=== PATIENT | female | born 1935 | race Caucasian/White ===

== ENCOUNTER 2020-06-21 07:34 | Outpatient (REF) | payer MEDICARE, OTHER, SELFPAY ==
[2020-06-21 11:41] LABS: B Type Natriuretic Peptide 85 pg/mL (<100)
[2020-06-21 11:45] LABS: Alanine Aminotransferase 13 U/L (0-31); Albumin Level 3.9 g/dL (3.5-5.0); Alkaline Phosphatase 87 U/L (39-117); Anion Gap 15 (12-20); Aspartate Amino Transferase 16 U/L (5-31); Bilirubin Total 0.3 mg/dL (0.0-1.0); Blood Urea Nitrogen 18 mg/dL (9-16); Calcium 8.7 mg/dL (8.4-10.2); Carbon Dioxide 25 mmol/L (22-29); Chloride 104 mmol/L (96-108); Estimated Glomerular Filt Rate > 60; Glucose Fasting 96 mg/dL (60-99); Potassium 4.3 mmol/l (3.3-5.1); Sodium 140 mmol/L (135-145)
== END 2020-06-21 07:35 | disposition home or self-care (01) ==
LOC: HO.HMGCLDS 07:34
PROVIDERS: PCP Internal Medicine; Visit Provider Internal Medicine
DX: E03.9 Hypothyroidism, unspecified (principal); I10 Essential (primary) hypertension; G25.81 Restless legs syndrome; R60.9 Edema, unspecified
CPT/HCPCS: 80053; 83880

== ENCOUNTER 2020-09-27 08:49 | Outpatient (REF) | payer MEDICARE, OTHER, SELFPAY ==
[2020-09-27 11:24] LABS: Hematocrit 40.9 % (37-47); Hemoglobin 13.3 g/dl (12.0-16.0); Mean Corpuscular HGB Conc 32.5 g/dl (31.0-35.0); Mean Corpuscular Hemoglobin 31.1 pg (27.0-33.0); Mean Corpuscular Volume 95.6 fL (80-98); Mean Platelet Volume 9.6 fL (9.4-12.3); Platelet Count 242 X10*3/uL (160-400); Red Blood Count 4.28 X10*6/uL (4.20-5.50); Red Cell Distribution Width 13.3 % (11.0-16.0); White Blood Count 8.6 X10*3/uL (4.8-10.8)
[2020-09-27 11:53] LABS: Alanine Aminotransferase 12 U/L (0-31); Albumin Level 3.9 g/dL (3.5-5.0); Alkaline Phosphatase 90 U/L (39-117); Anion Gap 15 (12-20); Bilirubin Total 0.2 mg/dL (0.0-1.0); Blood Urea Nitrogen 20 mg/dL (9-16); Calcium 8.8 mg/dL (8.4-10.2); Carbon Dioxide 26 mmol/L (22-29); Chloride 104 mmol/L (96-108); Cholesterol 160 mg/dL; Estimated Glomerular Filt Rate > 60; Glucose Fasting 99 mg/dL (60-99); HDL Cholesterol 32 mg/dL; LDL Cholesterol Calculated 77 mg/dl; Potassium 4.3 mmol/l (3.3-5.1); Sodium 141 mmol/L (135-145); Total Protein 7.1 g/dL (6.5-8.0); Triglycerides 257 mg/dL
[2020-09-27 12:18] LABS: Thyroid Stimulating Hormone 0.49 uIU/mL (0.32-4.0)
[2020-09-27 12:22] LABS: Aspartate Amino Transferase 14 U/L (5-31)
== END 2020-09-27 08:50 | disposition home or self-care (01) ==
LOC: HO.HMGCLDS 08:49
PROVIDERS: PCP Internal Medicine; Visit Provider Internal Medicine
DX: G25.81 Restless legs syndrome (principal); I11.0 Hypertensive heart disease with heart failure; I50.9 Heart failure, unspecified; E03.9 Hypothyroidism, unspecified; E66.9 Obesity, unspecified
CPT/HCPCS: 36415; 80053; 80061; 84443; 85027

== ENCOUNTER 2020-10-12 13:37 | Outpatient (REF) | payer MEDICARE, OTHER, SELFPAY ==
--- NOTE | ~2020-10-12 | XR_ITS ---
EXAMINATION: RIGHT FOOT AND ANKLE X-RAY CLINICAL INFORMATION: Trauma COMPARISON: None TECHNIQUE: 3 views of the right foot and 3 views of the right ankle FINDINGS: Right foot: Bone alignment is normal. No fracture or dislocation is seen. There is mild arthritis at the first MTP joint with small osteophytes. There are calcaneal spurs. Right ankle: Bone alignment is normal. No acute fracture or dislocation is seen. There is a well-corticated ossification adjacent to the medial malleolus likely related to old trauma. The ankle mortise is normal. There is diffuse soft tissue swelling about the ankle. XR/XR ankle RT 2V IMPRESSION: Right foot: Degenerative change at the first MTP joint and calcaneal spurs. Right ankle: No acute fracture. Probable old trauma to the medial malleolus. Diffuse soft tissue swelling.
--- NOTE | ~2020-10-12 | XR_ITS ---
EXAMINATION: RIGHT FOOT AND ANKLE X-RAY CLINICAL INFORMATION: Trauma COMPARISON: None TECHNIQUE: 3 views of the right foot and 3 views of the right ankle FINDINGS: Right foot: Bone alignment is normal. No fracture or dislocation is seen. There is mild arthritis at the first MTP joint with small osteophytes. There are calcaneal spurs. Right ankle: Bone alignment is normal. No acute fracture or dislocation is seen. There is a well-corticated ossification adjacent to the medial malleolus likely related to old trauma. The ankle mortise is normal. There is diffuse soft tissue swelling about the ankle. XR/XR foot RT min 3V IMPRESSION: Right foot: Degenerative change at the first MTP joint and calcaneal spurs. Right ankle: No acute fracture. Probable old trauma to the medial malleolus. Diffuse soft tissue swelling.
== END 2020-10-12 13:38 | disposition home or self-care (01) ==
LOC: HO.HMGCX 13:37
PROVIDERS: PCP Internal Medicine; Visit Provider Nurse Practitioner Family
DX: S99.929A Unspecified injury of unspecified foot, initial encounter (principal)
CPT/HCPCS: 73600; 73630

== ENCOUNTER 2021-02-08 14:28 | Outpatient (REF) | payer MEDICARE, OTHER, SELFPAY ==
[2021-02-08 17:06] LABS: Hematocrit 40.5 % (37-47); Hemoglobin 13.2 g/dl (12.0-16.0); Mean Corpuscular HGB Conc 32.6 g/dl (31.0-35.0); Mean Corpuscular Hemoglobin 30.8 pg (27.0-33.0); Mean Corpuscular Volume 94.6 fL (80-98); Mean Platelet Volume 10.3 fL (9.4-12.3); Platelet Count 294 X10*3/uL (160-400); Red Blood Count 4.28 X10*6/uL (4.20-5.50); Red Cell Distribution Width 13.3 % (11.0-16.0); White Blood Count 10.2 X10*3/uL (4.8-10.8)
[2021-02-08 17:14] LABS: Alanine Aminotransferase 10 U/L (0-31); Albumin Level 3.9 g/dL (3.5-5.0); Alkaline Phosphatase 105 U/L (39-117); Anion Gap 14 (12-20); Aspartate Amino Transferase 16 U/L (5-31); Bilirubin Total 0.2 mg/dL (0.0-1.0); Blood Urea Nitrogen 23 mg/dL (9-16); Calcium 9.2 mg/dL (8.4-10.2); Carbon Dioxide 28 mmol/L (22-29); Chloride 104 mmol/L (96-108); Estimated Glomerular Filt Rate > 60; Glucose Random 89 mg/dL (60-115); Potassium 3.9 mmol/L (3.3-5.1); Sodium 142 mmol/L (135-145); Total Protein 7.1 g/dL (6.5-8.0)
== END 2021-02-08 14:29 | disposition home or self-care (01) ==
LOC: HO.HMGCLDS 14:28
PROVIDERS: PCP Internal Medicine; Visit Provider Internal Medicine
DX: J44.9 Chronic obstructive pulmonary disease, unspecified (principal); E03.9 Hypothyroidism, unspecified; I10 Essential (primary) hypertension; R10.9 Unspecified abdominal pain
CPT/HCPCS: 36415; 80053; 85027

== ENCOUNTER 2021-02-22 | Outpatient (REF) | payer MEDICARE, OTHER, SELFPAY ==
[2021-02-22 13:53] LABS: Glucose Urine UA NEG (NEG); Leukocyte Esterase Urine NEG (NEG); Nitrite Urine NEG (NEG); Urine Blood TRACE (NEG); Urine Ketones NEG (NEG); Urine Protein NEG (NEG-TRACE)
[2021-02-22 13:54] LABS: Appearance Urine CLEAR; Color Urine YELLOW
[2021-02-22 14:06] LABS: Bacteria Urine TRACE /LPF; RBC Urine 0-2 /HPF (0); Squamous Epithelial Cell Urine TRACE /LPF; WBC Urine 0 /HPF (0-4)
== END 2021-02-22 00:01 | disposition home or self-care (01) ==
LOC: HO.HMGCLNP
PROVIDERS: Visit Provider Internal Medicine
DX: R10.9 Unspecified abdominal pain (principal)
CPT/HCPCS: 81001

== ENCOUNTER 2021-02-22 13:55 | Outpatient (REF) | payer MEDICARE, OTHER, SELFPAY ==
--- NOTE | ~2021-02-22 | CT_ITS ---
EXAMINATION: CT ABDOMEN AND PELVIS WITH CONTRAST CLINICAL INFORMATION: Abdominal pain COMPARISON: None TECHNIQUE: Multidetector volumetric images were obtained from the superior aspect of the liver through the pubic symphysis following administration 85 mL of Omnipaque 350 intravenous contrast. Sagittal and coronal reformatted images were obtained on the technologist's workstation. Oral contrast: Yes This CT examination was performed using dose optimization techniques as appropriate, variously including the following: *Automated exposure control *Adjustment of mA and/or kV according to patient size (this includes techniques or standardized protocols for targeted exams where dose is matched to indication/reason for exam; i.e. extremities or head) *Use of iterative reconstruction technique DLP: 659 mGy-cm FINDINGS: LUNG BASES: The visualized lung bases are unremarkable. LIVER, GALLBLADDER, AND BILIARY TREE: The liver is normal in size, shape, and attenuation. No focal hepatic lesion or biliary ductal dilatation is present. The gallbladder has been removed. PANCREAS: Unremarkable. SPLEEN: Unremarkable. ADRENAL GLANDS: Unremarkable. KIDNEYS AND URETERS: The kidneys are normal in size, shape, and attenuation. No hydronephrosis, hydroureter, or calculi seen. No perinephric stranding. BLADDER: Unremarkable. GASTROINTESTINAL TRACT: There is diverticulosis of the colon. Small and large bowel is otherwise unremarkable. The appendix is not identified. No inflammatory changes are seen in the right lower quadrant. The stomach is unremarkable. ABDOMINAL WALL: There is a small umbilical hernia containing fat. LYMPH NODES: There is shotty retroperitoneal lymphadenopathy seen in the pelvis. No enlarged nodes are seen. VASCULAR: There is evidence of atherosclerotic disease. The abdominal aorta is normal in caliber. PELVIC VISCERA: The uterus appears to have been removed. No pelvic mass is seen. OSSEOUS STRUCTURES: There are degenerative changes of the spine. CT/CT abdomen pelvis w con IMPRESSION: Diverticulosis of the colon. No evidence of diverticulitis. Small umbilical hernia containing fat.
[2021-02-22] MEDS: iohexoL 350 MG/ML 100 ML INFUS..BTL IV (15:04)
== END 2021-02-22 13:56 | disposition home or self-care (01) ==
LOC: HO.CT 13:55
PROVIDERS: Visit Provider Internal Medicine
DX: R10.9 Unspecified abdominal pain (principal); K57.92 Diverticulitis of intestine, part unspecified, without perforation or abscess without bleeding
CPT/HCPCS: 74177; Q9967

== ENCOUNTER → 2021-04-26 11:44 | Outpatient (BNVA) | payer MEDICARE, OTHER, SELFPAY | PROVIDERS: PCP Internal Medicine; Referring Provider Internal Medicine; Visit Provider Physician Assistant | DX: R10.32 Left lower quadrant pain (principal); R10.31 Right lower quadrant pain; E66.9 Obesity, unspecified; Z68.41 Body mass index [BMI] 40.0-44.9, adult; Z87.891 Personal history of nicotine dependence; Z79.899 Other long term (current) drug therapy | CPT/HCPCS: 99202 ==

== ENCOUNTER 2021-06-14 10:04 | Day surgery (SDC) | payer MEDICARE, OTHER, SELFPAY ==
--- NOTE | 2021-06-13 15:20 | P.CONAN_ITS ---
Documented by User: Alexandra Lauren NP 06/13/21 15:22 HPI - Anesthesia Eval Consult details Narrative: 85yo F for Colonoscopy PMFSH Active Problems Active Problems: All Active Problems (Updated 06/07/21 @ 15:27 by Shi Jimenez RN) Foot injury (Acute) Ankle sprain (Acute) Knee pain, left (Acute) Diverticulitis (Acute) Abdominal pain (Acute) Peripheral neuropathy (Acute) HTN (hypertension) (Acute) COPD (chronic obstructive pulmonary disease) (Acute) Obesity (Acute) Hypothyroidism (Acute) Edema (Acute) CHF (congestive heart failure) (Acute) RLS (restless legs syndrome) (Acute) Past Medical History Medical History (Updated 06/07/21 @ 15:27 by Shi Jimenez RN) Abdominal pain CHF (congestive heart failure) COPD (chronic obstructive pulmonary disease) Diverticulitis Edema GERD (gastroesophageal reflux disease) HTN (hypertension) Hypothyroidism Knee pain, left Obesity Peripheral neuropathy RLS (restless legs syndrome) Family History Family History Father HTN (hypertension) Diabetes mellitus Mother HTN (hypertension) Brother Cancer of prostate Daughter No problems noted. Daughter No problems noted. Son No problems noted. Sister No problems noted. Sister No problems noted. Surgical History Surgical History (Updated 06/07/21 @ 15:30 by Shi Jimenez RN) History of carpal tunnel surgery of right wrist History of knee replacement History of shoulder replacement History of tonsillectomy History of total abdominal hysterectomy and bilateral salpingo-oophorectomy Hx of appendectomy Hx of bilateral cataract extraction Hx of cholecystectomy Social History Social History Patient Tobacco Use Status: Former Tobacco user Years Smoked: 10 Use of substances other than those prescribed or required for medical reasons: No Are you DNR?: No Advance Directives: No Advance Directives Information Provided: Yes Meds Allergies Allergy/AdvReac Type Severity Reaction Status Date / Time amlodipine Allergy Unknown rash Verified 06/07/21 15:36 clarithromycin [From BIAXIN] Allergy Unknown RASH Verified 06/07/21 15:36 naproxen [NAPROXEN] Allergy Unknown UNKNOWN Verified 06/07/21 15:36 Novocain Allergy Unknown sleepiness Verified 06/07/21 15:36 Home Medications Medication Instructions Recorded Confirmed Last Taken Type albuterol sulfate 90 mcg/actuation 2 puff INHALATION Q6H PRN 06/27/20 04/06/21 Unknown History aerosol inhaler (ProAir HFA) ascorbic acid (vitamin C) 500 mg mg PO 06/27/20 04/06/21 Unknown History capsule furosemide 40 mg tablet 40 mg PO BID 06/27/20 04/06/21 Unknown History glucosamine-chondroitin 500 mg-400 1 tab PO DAILY 06/27/20 04/06/21 Unknown History mg tablet (Cosamin DS) multivitamin 1 tab PO DAILY 06/27/20 04/06/21 Unknown History ropinirole 1 mg tablet 1 mg PO BID 06/27/20 04/06/21 Unknown History cholecalciferol (vitamin D3) 25 25 mcg PO DAILY 12/14/20 04/06/21 Unknown History mcg (1,000 unit) capsule Exam Exam Date and Time: June 13, 2021 1520 Pertinent Lab Results Pertinent Lab Results: Laboratory Tests 02/08/21 02/08/21 14:35 14:35 WBC 10.2 Hgb 13.2 Hct 40.5 Plt Count 294 Sodium 142 Potassium 3.9 Chloride 104 Carbon Dioxide 28 BUN 23 H Creatinine 0.83 Assessment and Plan Assessment Anesthesia Assessment: Chart Reviewed Documented by User: Yoly López MD 06/14/21 10:57 [facility] Past Medical History Medical History (Updated 06/07/21 @ 15:27 by Shi Jimenez, MK) Abdominal pain CHF (congestive heart failure) COPD (chronic obstructive pulmonary disease) Diverticulitis Edema GERD (gastroesophageal reflux disease) HTN (hypertension) Hypothyroidism Knee pain, left Obesity Peripheral neuropathy RLS (restless legs syndrome) Family History Family History Father HTN (hypertension) Diabetes mellitus Mother HTN (hypertension) Brother Cancer of prostate Daughter No problems noted. Daughter No problems noted. Son No problems noted. Sister No problems noted. Sister No problems noted. Family history of problems with anesthesia: No Surgical History Surgical History (Updated 06/07/21 @ 15:30 by Shi Jimenez RN) History of carpal tunnel surgery of right wrist History of knee replacement History of shoulder replacement History of tonsillectomy History of total abdominal hysterectomy and bilateral salpingo-oophorectomy Hx of appendectomy Hx of bilateral cataract extraction Hx of cholecystectomy History of Problems with Anesthesia: No Social History Social History Patient Tobacco Use Status: Former Tobacco user Years Smoked: 10 Use of substances other than those prescribed or required for medical reasons: No Are you DNR?: No Advance Directives: No Advance Directives Information Provided: Yes Meds Allergies Allergy/AdvReac Type Severity Reaction Status Date / Time amlodipine Allergy Unknown rash Verified 06/07/21 15:36 clarithromycin [From BIAXIN] Allergy Unknown RASH Verified 06/07/21 15:36 naproxen [NAPROXEN] Allergy Unknown UNKNOWN Verified 06/07/21 15:36 Novocain Allergy Unknown sleepiness Verified 06/07/21 15:36 Home Medications Medication Instructions Recorded Confirmed Last Taken Type albuterol sulfate 90 mcg/actuation 2 puff INHALATION Q6H PRN 06/27/20 04/06/21 Unknown History aerosol inhaler (ProAir HFA) ascorbic acid (vitamin C) 500 mg mg PO 06/27/20 04/06/21 Unknown History capsule furosemide 40 mg tablet 40 mg PO BID 06/27/20 04/06/21 Unknown History glucosamine-chondroitin 500 mg-400 1 tab PO DAILY 06/27/20 04/06/21 Unknown History mg tablet (Cosamin DS) multivitamin 1 tab PO DAILY 06/27/20 04/06/21 Unknown History ropinirole 1 mg tablet 1 mg PO BID 06/27/20 04/06/21 Unknown History cholecalciferol (vitamin D3) 25 25 mcg PO DAILY 12/14/20 04/06/21 Unknown History mcg (1,000 unit) capsule Exam Airway Mallampati Class: II TM Dist: >3cm Neck ROM: Full Denture: Upper and Lower Heart: rrr Lungs: cta Assessment and Plan Assessment Anesthesia Assessment: Anesthesia Plan Discussed and Chart Reviewed Final Anesthetic Review Family History of Problems with Anesthesia: No History of Problems with Anesthesia: No NPO: Yes ASA Class: III Final Preanesthetic Review: No Changes in Pt Med Stat, Meds/Allgs Chart Reviewed and Consent Obtained/Reviewed Patient Risk: Intermediate Procedure Risk: Intermediate Anesthetic Plan Anesthetic Plan: MAC: Disposition: Standard PACU
[2021-06-14 10:23] VITALS: BP 184/95; PULSE 81; RESP 16; TEMP 36.7; O2SAT 97; BMI 43.5
[2021-06-14] MEDS: Lactated Ringers 1,000 ML 20 ML IVCONT (10:35)
--- NOTE | 2021-06-14 10:54 | MHC.SHP ---
Pre-Procedural Eval Section A Date of Service: 06/14/21 Section B Chief Complaint: abdominal pain Details of Present Illness: had RLQ pain which has now subsided, but has never had colon screening before. Relevant Family History (Specify if Yes): No Relevant Social History: None Present Medications: see Short Stay Collaborative assessment Medical History: Significant History (Abdominal pain CHF (congestive heart failure) COPD (chronic obstructive pulmonary disease) Diverticulitis Edema GERD (gastroesophageal reflux disease) HTN (hypertension) Hypothyroidism Knee pain, left Obesity Peripheral neuropathy RLS (restless legs syndrome)) History of Previous Operations: Relevant previous surgery/procedure and date(s) (History of carpal tunnel surgery of right wrist History of knee replacement History of shoulder replacement History of tonsillectomy History of total abdominal hysterectomy and bilateral salpingo-oophorectomy Hx of appendectomy Hx of bilateral cataract extraction Hx of cholecystectomy) Allergies: Allergies Allergy/AdvReac Type Severity Reaction Status Date / Time amlodipine Allergy Unknown rash Verified 06/07/21 15:36 clarithromycin [From BIAXIN] Allergy Unknown RASH Verified 06/07/21 15:36 naproxen [NAPROXEN] Allergy Unknown UNKNOWN Verified 06/07/21 15:36 Novocain Allergy Unknown sleepiness Verified 06/07/21 15:36 Review of Systems Sugical H&P ROS: Negative: Constitution, Cardiovascular, Respiratory, Neurological, Psychiatric, Hem-Onc, Allergic/Immunologic, Gastrointestinal, Genitourinary, Musculoskeletal, Integumentary, Endocrine and Eyes/Ears/Nose/Throat Exam Surgical H&P Exam: Normal: HEENT, Normal: Heart, Normal: Lungs, Normal: Extremities, Normal: Abdomen, Normal: Skin and Normal: Neurological Plan Diagnosis/Plan: Unchanged I have reviewed the history and physical and performed a pertinent physical examination on my patient. No changes have occurred unless specified.
--- NOTE | 2021-06-14 10:55 | PM.OP ---
Brief Operative Note Date of Service: 06/14/21 Pre-op diagnosis: abdo pain, colon screening-no prior colonoscopy Post-op diagnosis: same Procedure: see op note Surgeon: Lo Pelaez MD Anesthesia: MAC Was an [employer] used for this Procedure?: No Estimated blood loss (mL): 0 Condition: stable Disposition: PACU
--- NOTE | 2021-06-14 10:56 | P.OP_ITS ---
Operative Note Operative Note Date of Service: 06/14/21 Narrative: Operative Information Procedure Description: Colonoscopy COLONOSCOPY Instrument: Olympus variable stiffness adult scope 190L Colonoscopy Monitoring: Vital signs and clinical assessment, continuous EKG monitoring, Pulse oximetry, Carbon Dioxide monitoring and blood pressure monitoring were done throughout the procedure. Colon withdrawal time was 10 minutes. Procedure: The patient was placed in the left lateral decubitis position and pre-procedure medications were administered. After a digital rectal examination of the ano-rectum, the video colonoscope was inserted into the rectum and advanced through the colon to the cecum/TI. The colonoscope was slowly withdrawn in a retrograde panoramic fashion and the colon mucosa was carefully examined including a retroflexed view of the rectum. Findings and interventions are described below. Procedure Difficulty:moderate due to tortuous colon, severe diverticulosis, sigmoid lift required Findings: Terminal Ileum-normal Cecum: 6-8 mm sessile polyp removed with forceps Ascending Colon: normal Transverse Colon -normal Descending Colon:normal Sigmoid Colon: severe diverticulosis with large mouthed tics and stiff colon, and mucosal hypertrophy Rectum: Retroflexion with small internal hemorrhoids, grade I Anorectum - normal Colon preparation: [place] Bowel Preparation Scale Right colon; 3 Transverse colon: 3 Left colon; 2 (0 = Unprepared colon segment with mucosa not seen due to solid stool that cannot be cleared. 1 = Portion of mucosa of the colon segment seen, but other areas of the colon segment not well seen due to staining, residual stool and/or opaque liquid. 2 = Minor amount of residual staining, small fragments of stool and/or opaque liquid, but mucosa of colon segment seen well. 3 = Entire mucosa of colon segment seen well with no residual staining, small fragments of stool or opaque liquid) Impression and Post Procedure Diagnosis: polyp internal hemorrhoids diverticular disease Plan: High fiber diet leaflet Avoid straining at stool, epsom salts and sitz bath, anusol supps or cream Repeat Colonoscopy in 5 years if adenomatous polyp and health allows or earlier if clinically indicated. If polyp not pre cancerous and benign then 10 yrs if health allows for next colonoscopy and if patient wishes it. Above findings were reviewed with the patient and relevant handouts were provided if indicated.
[2021-06-14 11:42] VITALS: BP 172/72; PULSE 82; RESP 16; TEMP 36.1; O2SAT 98
[2021-06-14 11:57] VITALS: BP 188/72; PULSE 82; RESP 18; TEMP 524.5; TEMP 976.1; O2SAT 98
== END 2021-06-14 12:40 | disposition home or self-care (01) ==
PROVIDERS: PCP Internal Medicine; Visit Provider Internal Medicine Gastroenterology
PROC: 0DJD8ZZ Inspection of Lower Intestinal Tract, Via Natural or Artificial Opening Endoscopic (ICD-10-PCS; CPT 45378; principal; 2021-06-14 11:00)
DX: Z12.11 Encounter for screening for malignant neoplasm of colon (principal); D12.0 Benign neoplasm of cecum; K57.30 Diverticulosis of large intestine without perforation or abscess without bleeding; K64.0 First degree hemorrhoids; I11.0 Hypertensive heart disease with heart failure; I50.30 Unspecified diastolic (congestive) heart failure; J44.9 Chronic obstructive pulmonary disease, unspecified; Z79.899 Other long term (current) drug therapy
CPT/HCPCS: 45380; 88305

== ENCOUNTER 2021-06-28 12:29 | Outpatient (REF) | payer MEDICARE, OTHER, SELFPAY ==
[2021-06-28 14:29] LABS: Anion Gap 13 (12-20); Blood Urea Nitrogen 20 mg/dL (9-16); Calcium 8.9 mg/dL (8.4-10.2); Carbon Dioxide 26 mmol/L (22-29); Chloride 104 mmol/L (96-108); Estimated Glomerular Filt Rate > 60; Glucose Random 124 mg/dL (60-115); Potassium 4.2 mmol/L (3.3-5.1); Sodium 139 mmol/L (135-145)
== END 2021-06-28 12:30 | disposition home or self-care (01) ==
LOC: HO.HMGCLDS 12:29
PROVIDERS: PCP Internal Medicine; Visit Provider Internal Medicine
DX: E03.9 Hypothyroidism, unspecified (principal); I50.9 Heart failure, unspecified; E66.9 Obesity, unspecified; I10 Essential (primary) hypertension; J44.9 Chronic obstructive pulmonary disease, unspecified
CPT/HCPCS: 36415; 80048

== ENCOUNTER 2021-11-01 13:51 | Outpatient (REF) | payer MEDICARE, OTHER, SELFPAY ==
[2021-11-01 16:51] LABS: Hematocrit 39.8 % (37.0-47.0); Mean Corpuscular HGB Conc 32.7 g/dl (31.0-35.0); Mean Corpuscular Hemoglobin 31.8 pg (27.0-33.0); Mean Corpuscular Volume 97.3 fL (80.0-98.0); Mean Platelet Volume 10.2 fL (9.4-12.3); Platelet Count 266 X10*3/uL (160-400); Red Blood Count 4.09 X10*6/uL (4.20-5.50); Red Cell Distribution Width 13.4 % (11.0-16.0); White Blood Count 9.1 X10*3/uL (4.8-10.8)
[2021-11-01 17:06] LABS: Alanine Aminotransferase 13 U/L (0-31); Alkaline Phosphatase 96 U/L (39-117); Anion Gap 12 (12-20); Aspartate Amino Transferase 21 U/L (5-31); Bilirubin Total 0.4 mg/dL (0.0-1.0); Blood Urea Nitrogen 20 mg/dL (9-16); Calcium 9.3 mg/dL (8.4-10.2); Carbon Dioxide 30 mmol/L (22-29); Chloride 102 mmol/L (96-108); Estimated Glomerular Filt Rate > 60; Glucose Random 96 mg/dL (60-115); Potassium 4.4 mmol/L (3.3-5.1); Sodium 140 mmol/L (135-145); Total Protein 7.1 g/dL (6.5-8.0)
== END 2021-11-01 13:52 | disposition home or self-care (01) ==
LOC: HO.HMGCLDS 13:51
PROVIDERS: Visit Provider Internal Medicine
DX: E03.9 Hypothyroidism, unspecified (principal); G62.9 Polyneuropathy, unspecified; I10 Essential (primary) hypertension; R42 Dizziness and giddiness
CPT/HCPCS: 36415; 80053; 85027

== ENCOUNTER 2021-12-21 09:42 | Outpatient (REF) | payer MEDICARE, OTHER, SELFPAY ==
[2021-12-21 11:31] LABS: Hematocrit 39.8 % (37.0-47.0); Hemoglobin 13.1 g/dl (12.0-16.0); Mean Corpuscular HGB Conc 32.9 g/dl (31.0-35.0); Mean Corpuscular Hemoglobin 31.3 pg (27.0-33.0); Mean Platelet Volume 9.8 fL (9.4-12.3); Platelet Count 243 X10*3/uL (160-400); Red Blood Count 4.19 X10*6/uL (4.20-5.50); Red Cell Distribution Width 13.1 % (11.0-16.0); White Blood Count 7.2 X10*3/uL (4.8-10.8)
[2021-12-21 11:45] LABS: Alanine Aminotransferase 12 U/L (0-31); Albumin Level 3.9 g/dL (3.5-5.0); Alkaline Phosphatase 78 U/L (39-117); Anion Gap 13 (12-20); Aspartate Amino Transferase 16 U/L (5-31); Bilirubin Total 0.4 mg/dL (0.0-1.0); Blood Urea Nitrogen 18 mg/dL (9-16); Calcium 9.4 mg/dL (8.4-10.2); Carbon Dioxide 28 mmol/L (22-29); Chloride 101 mmol/L (96-108); Cholesterol 162 mg/dL; Estimated Glomerular Filt Rate > 60; Glucose Fasting 91 mg/dL (60-99); HDL Cholesterol 43 mg/dL; LDL Cholesterol Calculated 96 mg/dl; Sodium 138 mmol/L (135-145); Triglycerides 119 mg/dL
[2021-12-21 11:58] LABS: B Type Natriuretic Peptide 70 pg/mL (<100)
[2021-12-21 12:09] LABS: TSH reflex Free T4 4.91 uIU/mL (0.32-4.0)
[2021-12-21 13:18] LABS: Free T4 (Free Thyroxine) 1.13 ng/dL (0.71-1.85)
== END 2021-12-21 09:43 | disposition home or self-care (01) ==
LOC: HO.HMGCLDS 09:42
PROVIDERS: Visit Provider Internal Medicine
DX: I11.0 Hypertensive heart disease with heart failure (principal); I50.9 Heart failure, unspecified; E66.9 Obesity, unspecified; J44.9 Chronic obstructive pulmonary disease, unspecified; E03.9 Hypothyroidism, unspecified
CPT/HCPCS: 36415; 80053; 80061; 83880; 84439; 84443; 85027

== ENCOUNTER 2022-02-13 18:47 | Emergency (ER) | payer MEDICARE, OTHER, SELFPAY ==
--- NOTE | ~2022-02-13 | XR_ITS ---
EXAMINATION: XR HIP, RIGHT CLINICAL INFORMATION: Severe pain, atraumatic COMPARISON: Right hip radiographs 07/28/2019, CT abdomen and pelvis 02/22/2021 TECHNIQUE: AP pelvis, AP and frog-leg lateral views of the right hip. FINDINGS: No acute fracture or dislocation. No radiographic evidence of femoral head avascular necrosis. No osseous lesion is seen. Bilateral hip joint spaces are well-maintained. Minimal acetabular marginal osteophyte formation at both hips. Pubic symphysis and SI joints are congruent and intact. Facet arthrosis in the lower lumbar spine is noted bilaterally. XR/XR hip RT w PEL1V IMPRESSION: 1. No acute osseous injury 2. Mild bilateral hip joint osteoarthritis, similar to prior.
[2022-02-13 19:00] VITALS: BP 138/86; PULSE 97; O2SAT 98
[2022-02-13 19:03] VITALS: BP 176/79; PULSE 93; RESP 18; TEMP 36.4; O2SAT 96; BMI 46.0
--- NOTE | 2022-02-13 19:13 | PC.NURSE ---
pt a&ox3, vss - hypertensive. pt reporting increased right hip/leg pain over the past 3 days, hx chronic right hip pain - arthritis. pt denies pain at rest, endorses 10/10 pain when getting out of bed or from sitting to standing. increased difficulty ambulating with walker. pending ED provider.
--- NOTE | 2022-02-13 19:18 | ED_ITS ---
HPI - Extremity Problem General Chief complaint: Extremity Injury, Lower Stated complaint: R leg pain Time Seen by Provider: 02/13/22 19:17 Source: patient Mode of arrival: EMS Limitations: no limitations History of Present Illness HPI Narrative: Patient has history of chronic arthritis of hips status post right knee replacement comes here for increased pain in the right hip for last 3 days. No history of any injury or fall had difficulty in walking taking Tylenol for pain without much relief patient does have chronic back pain but no increase in the back pain. Patient also have a chronic leg edema which is same as before Related Data Home Medications Medication Instructions Recorded Confirmed albuterol sulfate 90 mcg/actuation 2 puff inhalation Q6H PRN 06/27/20 01/04/22 aerosol inhaler (ProAir HFA) ascorbic acid (vitamin C) 500 mg mg PO 06/27/20 01/04/22 capsule glucosamine-chondroitin 500 mg-400 1 tab PO DAILY 06/27/20 01/04/22 mg tablet (Cosamin DS) multivitamin 1 tab PO DAILY 06/27/20 01/04/22 cholecalciferol (vitamin D3) 25 25 mcg PO DAILY 12/14/20 01/04/22 mcg (1,000 unit) capsule Previous Rx's Medication Instructions Recorded triamcinolone acetonide 0.1 % 1 appl topical BID #80 grams 12/14/20 topical cream famotidine 20 mg tablet (Pepcid) 20 mg PO DAILY 90 days #90 tabs 11/01/21 furosemide 40 mg tablet 40 mg PO BID #180 tabs 11/01/21 gabapentin 600 mg tablet 600 mg PO QID 90 days #360 tabs 11/01/21 levothyroxine 150 mcg tablet 150 mcg PO DAILY 30 days #90 tabs 11/01/21 (Synthroid) losartan 50 mg tablet (Cozaar) 50 mg PO DAILY #90 tabs 11/01/21 potassium chloride 10 mEq 10 meq PO DAILY #90 caps 11/01/21 capsule,extended release ropinirole 1 mg tablet 1 mg PO DAILY #90 tabs 01/04/22 tramadol 50 mg tablet 50 mg PO Q6H PRN pain #20 tabs 02/13/22 Allergies Allergy/AdvReac Type Severity Reaction Status Date / Time amlodipine Allergy Unknown rash Verified 02/13/22 19:03 clarithromycin [From BIAXIN] Allergy Unknown RASH Verified 02/13/22 19:03 naproxen [NAPROXEN] Allergy Unknown Hives Verified 02/13/22 19:03 Novocain Allergy Unknown sleepiness Verified 02/13/22 19:03 Review of Systems Review of Systems: Yes all other systems are reviewed and are negative [facility] Past Medical History Medical History Arthritis GERD (gastroesophageal reflux disease) Right hip pain Surgical History History of carpal tunnel surgery of right wrist History of knee replacement History of shoulder replacement History of tonsillectomy History of total abdominal hysterectomy and bilateral salpingo-oophorectomy Hx of appendectomy Hx of bilateral cataract extraction Hx of cholecystectomy Family History Family History Father HTN (hypertension) Diabetes mellitus Mother HTN (hypertension) Brother Cancer of prostate Daughter No problems noted. Daughter No problems noted. Son No problems noted. Sister No problems noted. Sister No problems noted. Social History Social History Housing: House Alcohol intake: never Patient Tobacco Use Status: Former Tobacco user Years Smoked: 10 e-Cigarette/Vaping Use: Never Used Use of substances other than those prescribed or required for medical reasons: No Advance Directives: No Current occupational status: retired Cognitive needs: No Hearing needs: No Vision needs: Yes Physical Exam Vital Signs: Vital Signs: Last Vital Signs Temp 97.8 F 02/13/22 20:16 Pulse 80 02/13/22 20:16 Resp 16 02/13/22 20:16 BP 174/73 H 02/13/22 20:16 Pulse Ox 98 02/13/22 20:16 O2 Del Method 02/13/22 20:16 BMI result Body Mass Index 46.0 Appearance: Alert. Oriented X3. No acute distress. Eyes: PERRLA, No Nystagmus ENT: Pharynx normal. Oral Mucosa moist Neck: Normal inspection. Neck supple. CVS: Normal heart rate and rhythm. Pulses normal. Respiratory: No respiratory distress. Equal air entry bilateral, no wheezing/rales/rhonchi Abdomen: Soft and nontender. Bowel sounds are present, no mass palpable, no CVA tenderness Skin: Skin warm and dry. Normal skin color. Normal skin turgor. Extremities: 2 + lower extremity edema. No calf tenderness dip tenderness in the right groin area with increased pain on flexion Neuro: Oriented X 3. No motor deficit. No sensory deficit.No cerebellar signs , cranial nerves II-XII intact MDM - Extremity (Nontraumatic) MDM Narrative Medical decision making narrative: Patient with chronic right hip pain x-ray showed arthritis patient plan to see Orthopedic as outpatient.. Labs were stable Lab Data Attestation: I reviewed the patient's lab results. Result diagrams: 02/13/22 20:27 02/13/22 20:27 Labs: Lab Results 02/13/22 02/13/22 Range/Units 20:27 20:27 WBC 10.0 (4.8-10.8) X10*3/uL RBC 4.12 L (4.20-5.50) X10*6/uL Hgb 12.9 (12.0-16.0) g/dl Hct 39.4 (37.0-47.0) % MCV 95.6 (80.0-98.0) fL MCH 31.3 (27.0-33.0) pg MCHC 32.7 (31.0-35.0) g/dl RDW 13.8 (11.0-16.0) % Plt Count 205 (160-400) X10*3/uL MPV 9.5 (9.4-12.3) fL Immature Gran % (Auto) 0.4 (0.0-0.4) % Neut % (Auto) 57.5 (45-73) % Lymph % (Auto) 30.8 (20-40) % [place] % (Auto) 7.4 (2-11) % Eos % (Auto) 3.6 (0-4) % Baso % (Auto) 0.3 (0-2) % Lymph # (Auto) 3.1 (1.2-4.9) X10*3/uL [place] # (Auto) 0.7 (0.1-1.2) X10*3/uL Eos # (Auto) 0.4 (0.0-0.4) X10*3/uL Baso # (Auto) 0.0 (0.0-0.2) X10*3/uL Abs Immat Gran (auto) 0.04 H (0.00-0.03) X10*3/uL Absolute Neuts (auto) 5.7 (2.0-8.3) x10*3/uL Absolute Nucleated RBC 0.000 (0.0-0.012) X10*3/uL Nucleated RBC % (auto) 0.0 (0.0-0.2) /100WBC Sodium 140 (135-145) mmol/L Potassium 3.9 (3.3-5.1) mmol/L Chloride 103 (96-108) mmol/L Carbon Dioxide 27 (22-29) mmol/L Anion Gap 14 (12-20) BUN 17 H (9-16) mg/dL Creatinine 0.83 (0.5-1.4) mg/dL Estim Creat Clear Calc 55.8 Estimated GFR > 60 Random Glucose 118 H (60-115) mg/dL Calcium 8.3 L D (8.4-10.2) mg/dL Magnesium 1.9 (1.6-2.6) mg/dL Total Creatine Kinase 121 (26-140) U/L Discharge Plan Discharge Clinical Impression: Osteoarthritis of right hip Patient Disposition: Home, Self-Care Instructions: Osteoarthritis (ED) Additional Instructions: Take pain medication as prescribed and follow-up with PCP/ortho Prescriptions: New tramadol 50 mg tablet 50 mg PO Q6H PRN (Reason: pain) Qty: 20 0RF No Action albuterol sulfate [ProAir HFA] 90 mcg/actuation HFA aerosol inhaler 2 puff inhalation Q6H PRN ascorbic acid (vitamin C) 500 mg capsule PO multivitamin Tablet 1 tab PO DAILY glucosamine-chondroitin [Cosamin DS] 500-400 mg tablet 1 tab PO DAILY cholecalciferol (vitamin D3) 25 mcg (1,000 unit) capsule 25 mcg PO DAILY triamcinolone acetonide 0.1 % cream 1 appl topical BID Qty: 80 2RF famotidine [Pepcid] 20 mg tablet 20 mg PO DAILY 90 Days Qty: 90 3RF furosemide 40 mg tablet 40 mg PO BID Qty: 180 3RF gabapentin 600 mg tablet 600 mg PO QID 90 Days Qty: 360 3RF levothyroxine [Synthroid] 150 mcg tablet 150 mcg PO DAILY 30 Days Qty: 90 3RF losartan [Cozaar] 50 mg tablet 50 mg PO DAILY Qty: 90 3RF potassium chloride 10 mEq capsule, extended release 10 meq PO DAILY Qty: 90 3RF ropinirole 1 mg tablet 1 mg PO DAILY Qty: 90 3RF
[2022-02-13] MEDS: oxyCODONE HCl Immed Release 5 MG TABLET PO (19:33)
--- NOTE | 2022-02-13 19:34 | PC.NURSE ---
medicated per provider order.
[2022-02-13 20:16] VITALS: BP 174/73; PULSE 80; RESP 16; TEMP 36.6; O2SAT 98
[2022-02-13 20:31] LABS: MANUAL DIFF FLAG NO
[2022-02-13 20:34] LABS: Basophils Percent Auto 0.3 % (0-2); Eosinophils Absolute Auto 0.4 X10*3/uL (0.0-0.4); Eosinophils Percent Auto 3.6 % (0-4); Hematocrit 39.4 % (37.0-47.0); Hemoglobin 12.9 g/dl (12.0-16.0); Imm Gran Abs Auto 0.04 X10*3/uL (0.00-0.03); Imm Gran Pct Auto 0.4 % (0.0-0.4); Lymphocytes Absolute Auto 3.1 X10*3/uL (1.2-4.9); Lymphocytes Percent Auto 30.8 % (20-40); Mean Corpuscular HGB Conc 32.7 g/dl (31.0-35.0); Mean Corpuscular Hemoglobin 31.3 pg (27.0-33.0); Mean Corpuscular Volume 95.6 fL (80.0-98.0); Mean Platelet Volume 9.5 fL (9.4-12.3); Monocytes Absolute Auto 0.7 X10*3/uL (0.1-1.2); Monocytes Percent Auto 7.4 % (2-11); Neutrophils Absolute Auto 5.7 x10*3/uL (2.0-8.3); Neutrophils Percent Auto 57.5 % (45-73); Platelet Count 205 X10*3/uL (160-400); Red Blood Count 4.12 X10*6/uL (4.20-5.50); Red Cell Distribution Width 13.8 % (11.0-16.0)
[2022-02-13 20:51] LABS: Anion Gap 14 (12-20); Blood Urea Nitrogen 17 mg/dL (9-16); Calcium 8.3 mg/dL (8.4-10.2); Carbon Dioxide 27 mmol/L (22-29); Chloride 103 mmol/L (96-108); Creatinine Clr Calc Pharmacy 55.8; Estimated Glomerular Filt Rate > 60; Glucose Random 118 mg/dL (60-115); Magnesium 1.9 mg/dL (1.6-2.6); Potassium 3.9 mmol/L (3.3-5.1); Sodium 140 mmol/L (135-145)
[2022-02-13 22:12] VITALS: BP 180/80; PULSE 90; RESP 16; TEMP 36.6; O2SAT 96
== END 2022-02-13 22:36 | disposition home or self-care (01) ==
PROVIDERS: Emergency Provider Internal Medicine
DX: M16.11 Unilateral primary osteoarthritis, right hip (principal); M25.551 Pain in right hip; R60.0 Localized edema; Z96.651 Presence of right artificial knee joint; I11.0 Hypertensive heart disease with heart failure; I50.9 Heart failure, unspecified
CPT/HCPCS: 36415; 73502; 80048; 82550; 83735; 85025; 99283; 99284

== ENCOUNTER 2022-02-18 14:08 | Emergency (ER) | payer MEDICARE, OTHER, SELFPAY ==
--- NOTE | ~2022-02-18 | XR_ITS ---
EXAMINATION: XR CHEST CLINICAL INFORMATION: Shortness of breath with exertion. COMPARISON: None TECHNIQUE: 2 views of the chest were obtained. FINDINGS: No airspace consolidation. No pleural effusion or pneumothorax. Unremarkable cardiomediastinal silhouette. Reversed right shoulder arthroplasty. Severe left glenohumeral osteoarthritis. XR/XR chest 2V IMPRESSION: No acute cardiopulmonary findings.
--- NOTE | ~2022-02-18 | CT_ITS ---
EXAMINATION: CT HEAD WITHOUT CONTRAST CLINICAL INFORMATION: Tremors and slurred speech COMPARISON: Head CT 08/08/2018 TECHNIQUE: Imaging was performed from the skull base to vertex without intravenous administration of contrast. This CT examination was performed using dose optimization techniques as appropriate, variously including the following: *Automated exposure control *Adjustment of mA and/or kV according to patient size (this includes techniques or standardized protocols for targeted exams where dose is matched to indication/reason for exam; i.e. extremities or head) *Use of iterative reconstruction technique Total exam dose length product: 694 mGy-cm FINDINGS: No intra or extra-axial fluid collection, hemorrhage, or mass. No ventriculomegaly. No midline shift or herniation. Basal cisterns are patent. Gamble-white matter differentiation is maintained. No territorial encephalomalacia. Proportional prominence of the ventricles and sulcal spaces is consistent with moderate volume loss. Patchy periventricular and deep white matter hypoattenuation is consistent with moderate small vessel ischemic changes, similar to prior. No calvarial fracture or soft tissue abnormality. Mild mucosal thickening in the ethmoid air cells and left frontal sinus with a small mucous retention cyst. Remainder of the visualized paranasal sinuses and mastoid air cells are normally aerated. Status post bilateral lens extractions. CT/CT head/brain wo con IMPRESSION: 1. No acute intracranial pathology. 2. Cerebral atrophy and chronic small vessel ischemic white matter change, similar to prior.
[2022-02-18 14:19] VITALS: BP 134/64; BP 154/78; PULSE 80; PULSE 88; RESP 16; TEMP 36.5; O2SAT 96; BMI 41.5
--- NOTE | 2022-02-18 14:26 | PC.NURSE ---
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
--- NOTE | 2022-02-18 15:35 | ED.GENADULT ---
HPI - General Adult General Source: patient, RN notes reviewed and old records reviewed Mode of arrival: ambulatory History of Present Illness HPI narrative: 86-year-old female with past medical history of Congestive heart failure, hypothyroidism, obesity, COPD, hypertension, peripheral neuropathy, diverticulosis is here today for symptoms of shakiness. Patient reports that she walked to the bathroom after eating her muffin to have a bowel movement and when she was coming back to the kitchen she felt abdominal pain, lightheaded. When she sat down her right hand was shaking. Patient reports that her granddaughter was with him when that happened. Patient reports that her symptoms are gone now and that she is feeling better. Patient denies dizziness, lightheadedness, CP, palpitations, presyncope or syncope. Patient denies any fever or chills. Denies any migraine headaches, no abdominal pain. Related Data Home Medications Medication Instructions Recorded Confirmed albuterol sulfate 90 mcg/actuation 2 puff inhalation Q6H PRN Wheezing 06/27/20 02/21/22 aerosol inhaler (ProAir HFA) ascorbic acid (vitamin C) 500 mg 500 mg PO DAILY 06/27/20 02/21/22 capsule multivitamin 1 tab PO DAILY 06/27/20 02/21/22 cholecalciferol (vitamin D3) 25 25 mcg PO DAILY 12/14/20 02/21/22 mcg (1,000 unit) capsule acetaminophen 650 mg 1,300 mg PO TID 02/21/22 02/21/22 tablet,extended release calcium carbonate 500 mg-vitamin 1 tab PO DAILY 02/21/22 02/21/22 D3 3.125 mcg (125 unit) tablet gabapentin 600 mg tablet 600 mg PO TID 02/21/22 02/21/22 prednisone 10 mg tablet See Taper PO DAILY 02/21/22 02/21/22 triamcinolone acetonide 0.1 % 1 appl topical BID PRN Rash 02/21/22 02/21/22 topical cream Previous Rx's Medication Instructions Recorded famotidine 20 mg tablet (Pepcid) 20 mg PO DAILY 90 days #90 tabs 11/01/21 furosemide 40 mg tablet 40 mg PO BID #180 tabs 11/01/21 levothyroxine 150 mcg tablet 150 mcg PO DAILY 30 days #90 tabs 11/01/21 (Synthroid) losartan 50 mg tablet (Cozaar) 50 mg PO DAILY #90 tabs 11/01/21 potassium chloride 10 mEq 10 meq PO DAILY #90 caps 11/01/21 capsule,extended release ropinirole 1 mg tablet 1 mg PO DAILY #90 tabs 01/04/22 tramadol 50 mg tablet 50 mg PO BID PRN pain #10 tabs 02/15/22 baclofen 10 mg tablet 10 mg PO BEDTIME #30 tabs 02/21/22 cefuroxime axetil 250 mg tablet 250 mg PO BID 7 days #14 tabs 02/21/22 oxycodone 5 mg tablet 5 mg PO Q8H PRN severe pain (scale 02/21/22 score 7-10) #6 tabs Allergies Allergy/AdvReac Type Severity Reaction Status Date / Time amlodipine Allergy Unknown rash Verified 02/21/22 10:33 clarithromycin [From BIAXIN] Allergy Unknown RASH Verified 02/21/22 10:33 naproxen [NAPROXEN] Allergy Unknown Hives Verified 02/21/22 10:33 Novocain Allergy Unknown sleepiness Verified 02/21/22 10:33 Review of Systems Review of Systems: Constitutional : No Weight loss, No Fever, No Chills, No Night Sweats, No Fatigue, No Malaise ENT/Mouth : No Hearing loss, No Ear Pain, No Nasal Congestion, No Sinus Pain, No Hoarseness, No sore throat, No Rhinorrhea, No Swallowing Difficulty Eyes: No Eye Pain, No Swelling, No Redness, No Foreign Body, No Discharge, No Vision Changes Cardiovascular : No Chest Pain, No SOB, No Dyspnea on Exertion, No Orthopnea, No Edema, No Palpitations Respiratory : No Cough, No Sputum, No Wheezing, No Smoke Exposure, No Dyspnea Gastrointestinal : Nausea, No Vomiting, No Diarrhea, No Constipation, abdominal Pain, No Hematochezia, No Melena Genitourinary : no irregular bleeding, No Dysuria, No Urinary Frequency, No Hematuria, No Urinary Incontinence, No Urgency, No Flank Pain, No Urinary Flow Changes, No Hesitancy Musculoskeletal : No joint pain, No Myalgias, No Joint Swelling Skin : No Skin Lesions, No rash Extremities: Bilateral lower extremities swelling Neuro : No Weakness, No Numbness, No Paresthesias, No Loss of Consciousness, Dizziness, No Headache Psych : No Anxiety/Panic, No Depression, No SI/HI/AH/VH, No Social Issues, Heme/Lymph: No Bruising, No Bleeding,No Lymphadenopathy Endocrine : No Polyuria, No Polydipsia, No Temperature Intolerance Yes all other systems are reviewed and are negative [facility] Past Medical History Medical History Arthritis CHF (congestive heart failure) COPD (chronic obstructive pulmonary disease) Edema GERD (gastroesophageal reflux disease) Hypothyroidism Obesity Right hip pain Surgical History History of carpal tunnel surgery of right wrist History of knee replacement History of shoulder replacement History of tonsillectomy History of total abdominal hysterectomy and bilateral salpingo-oophorectomy Hx of appendectomy Hx of bilateral cataract extraction Hx of cholecystectomy Family History Family History Father HTN (hypertension) Diabetes mellitus Mother HTN (hypertension) Brother Cancer of prostate Daughter No problems noted. Daughter No problems noted. Son No problems noted. Sister No problems noted. Sister No problems noted. Social History Social History Housing: House Alcohol intake: never Patient Tobacco Use Status: Former Tobacco user Years Smoked: 10 e-Cigarette/Vaping Use: Never Used Advance Directives: Yes Advance Directives on File: Yes Advance Directives Date on File: 10/14/20 Current occupational status: retired Cognitive needs: No Hearing needs: No Vision needs: Yes Physical Exam ED Vital Signs: Vital Signs - 24 hr 02/18/22 14:19 02/18/22 17:33 Temperature 97.7 F Pulse Rate 80 76 Respiratory Rate 16 14 Blood Pressure 154/78 H 155/87 H Pulse Oximetry 96 98 Oxygen Delivery Method Room Air Room Air BMI result Body Mass Index 41.5 Const General: cooperative, healthy appearing, comfortable and no acute distress Nutritional Appearance: obese Orientation/consciousness: patient oriented x3 Limitations: no limitations HENMT Head: Yes normal to inspection, Yes normocephalic and Yes atraumatic Ears: hearing grossly normal bilaterally and TM's normal bilaterally General nose exam: Normal external nose present Face and sinus: Yes normal facial exam and Yes face symmetric Mouth: Normal oral and palatal mucosa present Eyes General: appearance normal, both eyes and all related structures Neck Neck: Yes normal visual inspection, Yes full ROM and Yes trachea midline Resp Effort & Inspection: normal respiratory effort and able to speak in complete sentences Auscultation: clear to auscultation bilaterally Cardio Jugular venous distension: no JVD Rate: regular rate Heart sounds: S1 normal heart sound present, S2 normal heart sound present, no gallops, no murmurs and no rubs GI Inspection: Yes normal to inspection and Yes obesity Palpation (GI): Soft to palpation, not firm, nontender and no guarding General: Yes no CVA tenderness Back/Spine/Pelvis Back: no CVA tenderness Cervical Spine: normal cervical lordosis Thoracic/Lumbar Spine: thoracic and lumbar spine normal to inspection Sacroiliac joints: on the right tender to palpation (Mild tenderness above right SI joint) Skin General skin exam: no rashes or lesions noted Lesions: no lesions Rashes: no rashes Trauma: no lacerations or abrasions Wounds: no wounds Neuro General: patient oriented x3 Extrem Other: BLE edema left greater than right Course Course Course Narrative: 86-year-old female with past medical history of Congestive heart failure, hypothyroidism, obesity, COPD, hypertension, peripheral neuropathy, diverticulosis is here today for symptoms of shakiness. Patient reports that she walked to the bathroom after eating her muffin to have a bowel movement and when she was coming back to the kitchen she felt abdominal pain, lightheaded. When she sat down her right hand was shaking. Patient reports that her granddaughter was with him when that happened. Patient reports that her symptoms are gone now and that she is feeling better. Patient denies dizziness, lightheadedness, CP, palpitations, presyncope or syncope. Patient denies any fever or chills. Denies any migraine headaches, no abdominal pain. Will do CT scan of the head, CBC, CMP. Reevaluation(s) Reevaluation #1: Patient reports that she has been doing much better. Patient ate dinner. Ambulated to the bathroom with steady gait. CT scan of the head normal no acute processes. Blood work also normal. Will send patient to follow-up with PCP. Patient states that she has an appointment with her next week. Patient was encouraged to keep her feet up. Medical Decision Making Lab Data Result diagrams: 02/18/22 16:05 02/18/22 16:05 Labs: Lab Results 02/18/22 02/18/22 02/18/22 Range/Units 16:05 16:05 16:59 WBC 9.2 (4.8-10.8) X10*3/uL RBC 4.06 L (4.20-5.50) X10*6/uL Hgb 12.7 (12.0-16.0) g/dl Hct 38.3 (37.0-47.0) % MCV 94.3 (80.0-98.0) fL MCH 31.3 (27.0-33.0) pg MCHC 33.2 (31.0-35.0) g/dl RDW 13.6 (11.0-16.0) % Plt Count 236 (160-400) X10*3/uL MPV 9.2 L (9.4-12.3) fL Immature Gran % (Auto) 0.5 H (0.0-0.4) % Neut % (Auto) 61.4 (45-73) % Lymph % (Auto) 28.5 (20-40) % [place] % (Auto) 7.0 (2-11) % Eos % (Auto) 2.2 (0-4) % Baso % (Auto) 0.4 (0-2) % Lymph # (Auto) 2.6 (1.2-4.9) X10*3/uL [place] # (Auto) 0.7 (0.1-1.2) X10*3/uL Eos # (Auto) 0.2 (0.0-0.4) X10*3/uL Baso # (Auto) 0.0 (0.0-0.2) X10*3/uL Abs Immat Gran (auto) 0.05 H (0.00-0.03) X10*3/uL Absolute Neuts (auto) 5.7 (2.0-8.3) x10*3/uL Absolute Nucleated RBC 0.000 (0.0-0.012) X10*3/uL Nucleated RBC % (auto) 0.0 (0.0-0.2) /100WBC Sodium 141 (135-145) mmol/L Potassium 3.5 (3.3-5.1) mmol/L Chloride 100 (96-108) mmol/L Carbon Dioxide 32 H (22-29) mmol/L Anion Gap 13 (12-20) BUN 18 H (9-16) mg/dL Creatinine 0.79 (0.5-1.4) mg/dL Estim Creat Clear Calc 61.9 Estimated GFR > 60 Random Glucose 112 (60-115) mg/dL Calcium 8.6 (8.4-10.2) mg/dL Total Bilirubin 0.2 (0.0-1.0) mg/dL AST 18 (5-31) U/L ALT 17 (0-31) U/L Alkaline Phosphatase 97 D (39-117) U/L Total Protein 7.4 (6.5-8.0) g/dL Albumin 3.9 (3.5-5.0) g/dL Urine Color YELLOW Urine Appearance HAZY Urine pH 5.5 (5.0-8.0) Ur Specific [place] <= 1.005 (1.005-1.025) Urine Protein NEG (NEG-TRACE) MG/DL Urine Glucose (UA) NEG (NEG) MG/DL Urine Ketones NEG (NEG) MG/DL Urine Blood 1+ H (NEG) Urine Nitrite NEG (NEG) Ur Leukocyte Esterase 1+ H (NEG) Urine RBC 1-4 (0) /HPF Urine WBC 30-49 H (0-4) /HPF Urine WBC Clumps NOTED Ur Squamous Epith Cells TRACE /LPF Urine Bacteria 1+ /LPF Imaging Data CT scan - head: Attestation: I personally reviewed and interpreted this imaging study as follows: Radiologist's impression: FINDINGS: No intra or extra-axial fluid collection, hemorrhage, or mass. No ventriculomegaly. No midline shift or herniation. Basal cisterns are patent. Gamble-white matter differentiation is maintained. No territorial encephalomalacia. ?Proportional prominence of the ventricles and sulcal spaces is consistent with moderate volume loss. Patchy periventricular and deep white matter hypoattenuation is consistent with moderate small vessel ischemic changes, similar to prior. No calvarial fracture or soft tissue abnormality.? Mild mucosal thickening in the ethmoid air cells and left frontal sinus with a small mucous retention cyst. Remainder of the visualized paranasal sinuses and mastoid air cells are normally aerated. Status post bilateral lens extractions. CT/CT head/brain wo con IMPRESSION: 1. No acute intracranial pathology. 2. Cerebral atrophy and chronic small vessel ischemic white matter change, similar to prior. Discharge Plan Discharge Clinical Impression: Tremor, Abdominal pain Patient Disposition: Home, Self-Care Instructions: Abdominal Pain (ED), Tremors (ED) Additional Instructions: your CT scan was normal today. all your blood work was also normal. Please follow-up with your primary care provider. You may return to emergency department if his symptoms will get worse or if you experience any additional concerning symptoms. Prescriptions: No Action tramadol 50 mg tablet 50 mg PO BID PRN (Reason: pain) Qty: 10 0RF acetaminophen [Tylenol Arthritis] 650 mg Tablet Extended Release 1,300 mg PO TID calcium carbonate-vitamin D3 [Calcium 500 + D (D3)] 500 mg-3.125 mcg (125 unit) Tablet 1 tab PO DAILY prednisone 10 mg tablet See Taper PO DAILY Taper: Prednisone 40 mg daily for 3 Days and 0 Hour 30 mg daily for 3 Days and 0 Hour 20 mg daily for 3 Days and 0 Hour 10 mg daily for 3 Days and 0 Hour Rx Instructions: 4 tabl x 3days, then 3 tabl x 3days, then 2 tabl x 3days, then 1 tabl x 3days orally daily; gabapentin 600 mg tablet 600 mg PO TID triamcinolone acetonide 0.1 % cream 1 appl topical BID PRN (Reason: Rash) cefuroxime axetil 250 mg tablet 250 mg PO BID 7 Days Qty: 14 0RF oxycodone 5 mg tablet 5 mg PO Q8H PRN (Reason: severe pain (scale score 7-10)) Qty: 6 0RF Rx Instructions: Partial Fill upon patient request. albuterol sulfate [ProAir HFA] 90 mcg/actuation HFA aerosol inhaler 2 puff inhalation Q6H PRN (Reason: Wheezing) ascorbic acid (vitamin C) 500 mg capsule 500 mg PO DAILY multivitamin Tablet 1 tab PO DAILY cholecalciferol (vitamin D3) 25 mcg (1,000 unit) capsule 25 mcg PO DAILY famotidine [Pepcid] 20 mg tablet 20 mg PO DAILY 90 Days Qty: 90 3RF furosemide 40 mg tablet 40 mg PO BID Qty: 180 3RF levothyroxine [Synthroid] 150 mcg tablet 150 mcg PO DAILY 30 Days Qty: 90 3RF losartan [Cozaar] 50 mg tablet 50 mg PO DAILY Qty: 90 3RF potassium chloride 10 mEq capsule, extended release 10 meq PO DAILY Qty: 90 3RF ropinirole 1 mg tablet 1 mg PO DAILY Qty: 90 3RF baclofen 10 mg tablet 10 mg PO BEDTIME Qty: 30 0RF Referrals: Aziza Maradiaga MD [Primary Care Provider] - 1 week Interventions: ED Discharge Assessment Last Done: 02/18/22 19:24 Discharge Date/Time: 02/18/22 19:25
--- NOTE | 2022-02-18 15:56 | ECG_ITS ---
Test Reason : DIZZINESS Blood Pressure : / mmHG Vent. Rate : 073 BPM Atrial Rate : 073 BPM P-R Int : 176 ms QRS Dur : 110 ms QT Int : 394 ms P-R-T Axes : 074 -21 078 degrees QTc Int : 434 ms Normal sinus rhythm Incomplete left bundle branch block Left ventricular hypertrophy with repolarization abnormality ( R in aVL , product ) Abnormal ECG When compared with ECG of 12-JAN-2019 09:33, No significant change was found Referred By: Bina Chapman Electronically Signed By:ADRIANNA BERKOWITZ MD
[2022-02-18 16:10] LABS: MANUAL DIFF FLAG NO
--- NOTE | 2022-02-18 16:13 | PC.NURSE ---
patient is a difficult stick for iv, discussed with provider- opted to not give ivf or start iv, pt was straight stick for blood by tech, pt sitting reading book, BLE edema 2+. will continue to monitor.
--- NOTE | 2022-02-18 16:17 | PC.NURSE ---
pt to ct scan
[2022-02-18 16:20] LABS: Basophils Percent Auto 0.4 % (0-2); Eosinophils Absolute Auto 0.2 X10*3/uL (0.0-0.4); Eosinophils Percent Auto 2.2 % (0-4); Hematocrit 38.3 % (37.0-47.0); Hemoglobin 12.7 g/dl (12.0-16.0); Imm Gran Abs Auto 0.05 X10*3/uL (0.00-0.03); Imm Gran Pct Auto 0.5 % (0.0-0.4); Lymphocytes Absolute Auto 2.6 X10*3/uL (1.2-4.9); Lymphocytes Percent Auto 28.5 % (20-40); Mean Corpuscular HGB Conc 33.2 g/dl (31.0-35.0); Mean Corpuscular Hemoglobin 31.3 pg (27.0-33.0); Mean Corpuscular Volume 94.3 fL (80.0-98.0); Mean Platelet Volume 9.2 fL (9.4-12.3); Monocytes Absolute Auto 0.7 X10*3/uL (0.1-1.2); Neutrophils Absolute Auto 5.7 x10*3/uL (2.0-8.3); Neutrophils Percent Auto 61.4 % (45-73); Platelet Count 236 X10*3/uL (160-400); Red Blood Count 4.06 X10*6/uL (4.20-5.50); Red Cell Distribution Width 13.6 % (11.0-16.0); White Blood Count 9.2 X10*3/uL (4.8-10.8)
[2022-02-18 16:30] LABS: Alanine Aminotransferase 17 U/L (0-31); Albumin Level 3.9 g/dL (3.5-5.0); Alkaline Phosphatase 97 U/L (39-117); Anion Gap 13 (12-20); Aspartate Amino Transferase 18 U/L (5-31); Bilirubin Total 0.2 mg/dL (0.0-1.0); Blood Urea Nitrogen 18 mg/dL (9-16); Calcium 8.6 mg/dL (8.4-10.2); Carbon Dioxide 32 mmol/L (22-29); Chloride 100 mmol/L (96-108); Creatinine Clr Calc Pharmacy 61.9; Estimated Glomerular Filt Rate > 60; Glucose Random 112 mg/dL (60-115); Potassium 3.5 mmol/L (3.3-5.1); Sodium 141 mmol/L (135-145); Total Protein 7.4 g/dL (6.5-8.0)
[2022-02-18 17:05] LABS: Appearance Urine HAZY; Color Urine YELLOW; Glucose Urine UA NEG (NEG); Leukocyte Esterase Urine 1+ (NEG); Nitrite Urine NEG (NEG); PH 5.5 (5.0-8.0); Specific Gravity - Urine <= 1.005 (1.005-1.025); UACC Culture Trigger YES; Urine Blood 1+ (NEG); Urine Ketones NEG (NEG); Urine Protein NEG (NEG-TRACE)
[2022-02-18 17:18] LABS: Bacteria Urine 1+ /LPF; Squamous Epithelial Cell Urine TRACE /LPF; WBC Urine 30-49 /HPF (0-4)
[2022-02-18 17:19] LABS: WBC Clumps Urine NOTED
[2022-02-18 17:33] VITALS: BP 155/87; PULSE 76; RESP 14; O2SAT 98
--- NOTE | 2022-02-18 18:22 | PC.NURSE ---
patient a&ox3, c/o pain to rle, glass maker nsr 70s, vss, call awad within reach, will continue to monitor.
== END 2022-02-18 19:25 | disposition home or self-care (01) ==
PROVIDERS: Nurse Practitioner Family; Emergency Provider Emergency Medicine Emergency Medical Services; PCP Internal Medicine
DX: R42 Dizziness and giddiness (principal); R47.81 Slurred speech; R07.89 Other chest pain; Z79.899 Other long term (current) drug therapy
CPT/HCPCS: 36415; 70450; 71046; 80053; 81001; 85025; 87086; 93005; 99284

== ENCOUNTER 2022-02-21 11:29 | Emergency (ER) | payer MEDICARE, OTHER, SELFPAY ==
--- NOTE | ~2022-02-21 | CT_ITS ---
EXAMINATION: CT ABDOMEN AND PELVIS WITHOUT CONTRAST CLINICAL INFORMATION: Low back pain, right hip pain and right flank pain. COMPARISON: None TECHNIQUE: Multidetector volumetric imaging was performed from the superior aspect of the liver through the pubic symphysis. Sagittal and coronal reformatted images were obtained on the technologist's workstation. This CT examination was performed using dose optimization techniques as appropriate, variously including the following: *Automated exposure control *Adjustment of mA and/or kV according to patient size (this includes techniques or standardized protocols for targeted exams where dose is matched to indication/reason for exam; i.e. extremities or head) *Use of iterative reconstruction technique DLP: 785 mGy-cm FINDINGS: LUNG BASES: There is minimal bronchiectasis and linear reticular interstitial scarring or atelectasis in the lung bases. Heart size is normal. Mitral valve calcification is seen. A small hiatal hernia is suspected. LIVER, GALLBLADDER, AND BILIARY TREE: The liver is normal in size, shape, and attenuation. No focal hepatic lesion or biliary ductal dilatation is present. The gallbladder has been surgically removed. PANCREAS: Unremarkable. SPLEEN: Unremarkable. ADRENAL GLANDS: Unremarkable. KIDNEYS AND URETERS: The kidneys are normal in size, shape, and attenuation. No hydronephrosis, hydroureter, or calculi seen. There is mild bilateral perinephric stranding. BLADDER: Unremarkable. GASTROINTESTINAL TRACT: There is scattered colonic diverticuli, stool and gas without diverticulitis, bowel obstruction or mural thickening. The small bowel loops are normal caliber. Appendix is not visualized ABDOMINAL WALL: There is a small umbilical hernia containing fat. LYMPH NODES: Normal. VASCULAR: Unremarkable. PELVIC VISCERA: The uterus is atrophied or surgically absent. There is no free fluid is no adnexal mass OSSEOUS STRUCTURES: Grade 1 anterolisthesis L4-L5 is noted. Mild degenerative disc changes with vacuum disc phenomena L5-S1 and L1-L2 and T12/L1 disc levels is noted. CT/CT abdomen pelvis wo con IMPRESSION: Colonic diverticulosis most prominent in the sigmoid region no visible diverticulitis, bowel obstruction or free air. Small umbilical hernia containing fat. Nonspecific bilateral perinephric stranding. Grade 1 anterolisthesis L4-L5 with an degenerative vacuum disc phenomena and disc changes L5-S1 and T12-L1 disc level. Fleischner guidelines were followed.
--- NOTE | ~2022-02-21 | US_ITS ---
EXAMINATION: US VENOUS ULTRASOUND WITH DOPPLER LOWER EXTREMITY, BILATERAL CLINICAL INFORMATION: Bilateral lower extremity pain and swelling. COMPARISON: None TECHNIQUE: Ultrasound of the deep veins is performed from the hip to the calf with compression sonography and color and pulse Doppler assessment. Spectral analysis with color-flow imaging is performed. FINDINGS: RIGHT: There is normal venous compression and respiratory variation and augmented flow. The visualized common femoral vein, superficial femoral vein, profunda femoral vein, popliteal vein, and the trifurcation region shows no evidence of deep venous thrombosis. There is no significant popliteal fossa cyst. LEFT: There is normal venous compression and respiratory variation and augmented flow. The visualized common femoral vein, superficial femoral vein, profunda femoral vein, popliteal vein, and the trifurcation region shows no evidence of deep venous thrombosis. There is no significant popliteal fossa cyst. US/US venous duplex LE BI IMPRESSION: No DVT demonstrated in the bilateral lower extremities.
[2022-02-21 11:32] VITALS: BP 227/123; PULSE 93; RESP 20; TEMP 36.5; O2SAT 95; BMI 45.5
[2022-02-21 12:03] VITALS: BP 193/88; PULSE 90; RESP 20; TEMP 36.6
--- NOTE | 2022-02-21 12:23 | ED_ITS ---
HPI - Back Pain/Injury General Chief Complaint: General Medical Stated Complaint: Sciatica & Case Management Time Seen by Provider: 02/21/22 12:02 Source: patient and family Mode of arrival: ambulatory Limitations: no limitations History of Present Illness HPI Narrative: 86 yo female hx of CHF, HTN, LE edema, hypothyroidism dealing with atraumatic R sided back pain radiating to the right leg - no b/b incontience (wears depends at baseline) no saddle anesthesia no IVDA no DOAC therapy. Has been sitting in a chair only so LE edema is worsening from baseline. At this time brought by daughter patient cannot manage at home she cannot walk and PT cannot come in due to ?hoarding situation MD elicited complaint: back pain Pertinent past history: prior back pain Onset (ago): week(s) (2) Timing: constant and progressively worsening Severity: moderate Similar Symptoms Previously: No Quality: sharp Location: lumbar spine Radiation: buttocks and right upper leg Exacerbating factors: movement Relieving factors: immobilization Context: unknown Associated symptoms: other (leg swelling due to sitting/sleeping upright in kitchen chair) Treatments prior to arrival: acetaminophen Work related injury: No Related Data Home Medications Medication Instructions Recorded Confirmed albuterol sulfate 90 mcg/actuation 2 puff inhalation Q6H PRN Wheezing 06/27/20 02/21/22 aerosol inhaler (ProAir HFA) ascorbic acid (vitamin C) 500 mg 500 mg PO DAILY 06/27/20 02/21/22 capsule multivitamin 1 tab PO DAILY 06/27/20 02/21/22 cholecalciferol (vitamin D3) 25 25 mcg PO DAILY 12/14/20 02/21/22 mcg (1,000 unit) capsule acetaminophen 650 mg 1,300 mg PO TID 02/21/22 02/21/22 tablet,extended release calcium carbonate 500 mg-vitamin 1 tab PO DAILY 02/21/22 02/21/22 D3 3.125 mcg (125 unit) tablet gabapentin 600 mg tablet 600 mg PO TID 02/21/22 02/21/22 prednisone 10 mg tablet See Taper PO DAILY 02/21/22 02/21/22 triamcinolone acetonide 0.1 % 1 appl topical BID PRN Rash 02/21/22 02/21/22 topical cream Previous Rx's Medication Instructions Recorded famotidine 20 mg tablet (Pepcid) 20 mg PO DAILY 90 days #90 tabs 11/01/21 furosemide 40 mg tablet 40 mg PO BID #180 tabs 11/01/21 levothyroxine 150 mcg tablet 150 mcg PO DAILY 30 days #90 tabs 11/01/21 (Synthroid) losartan 50 mg tablet (Cozaar) 50 mg PO DAILY #90 tabs 11/01/21 potassium chloride 10 mEq 10 meq PO DAILY #90 caps 11/01/21 capsule,extended release ropinirole 1 mg tablet 1 mg PO DAILY #90 tabs 01/04/22 tramadol 50 mg tablet 50 mg PO BID PRN pain #10 tabs 02/15/22 baclofen 10 mg tablet 10 mg PO BEDTIME #30 tabs 02/21/22 Allergies Allergy/AdvReac Type Severity Reaction Status Date / Time amlodipine Allergy Unknown rash Verified 02/21/22 10:33 clarithromycin [From BIAXIN] Allergy Unknown RASH Verified 02/21/22 10:33 naproxen [NAPROXEN] Allergy Unknown Hives Verified 02/21/22 10:33 Novocain Allergy Unknown sleepiness Verified 02/21/22 10:33 Review of Systems Review of Systems: Constitutional : No Weight loss, No Fever, No Chills, ENT/Mouth : No Hearing loss, No Ear Pain, No Nasal Congestion, No Sinus Pain, No Hoarseness, No sore throat, No Rhinorrhea, No Swallowing Difficulty Cardiovascular : No Chest Pain, No SOB, pos lower extremity edema Respiratory : No Cough, No Dyspnea Gastrointestinal : No Nausea, No Vomiting, No Diarrhea, No abdominal Pain, No Hematochezia, No Melena Genitourinary : No Dysuria, No Urinary Frequency, No Hematuria, No Urinary Incontinence, Musculoskeletal : positive back pain Skin : No Skin Lesions, No rash Neuro : No Weakness, No Numbness, No Paresthesias, no loss of bowel or bladder incontinence, no saddle anesthesia All other systems reviewed and are negative [facility] Past Medical History Attestation statement: The following information was validated with the patient. Medical History Arthritis CHF (congestive heart failure) COPD (chronic obstructive pulmonary disease) Edema GERD (gastroesophageal reflux disease) Hypothyroidism Obesity Right hip pain Surgical History History of carpal tunnel surgery of right wrist History of knee replacement History of shoulder replacement History of tonsillectomy History of total abdominal hysterectomy and bilateral salpingo-oophorectomy Hx of appendectomy Hx of bilateral cataract extraction Hx of cholecystectomy Family History Family History Father HTN (hypertension) Diabetes mellitus Mother HTN (hypertension) Brother Cancer of prostate Daughter No problems noted. Daughter No problems noted. Son No problems noted. Sister No problems noted. Sister No problems noted. Social History Social History Housing: House Alcohol intake: never Patient Tobacco Use Status: Former Tobacco user Years Smoked: 10 e-Cigarette/Vaping Use: Never Used Advance Directives: Yes Advance Directives on File: Yes Advance Directives Date on File: 10/14/20 Current occupational status: retired Cognitive needs: No Hearing needs: No Vision needs: Yes Physical Exam Vital Signs: Vital Signs: Last Vital Signs Temp 97.8 F 02/21/22 15:10 Pulse 80 02/21/22 15:10 Resp 16 02/21/22 15:10 BP 145/73 H 02/21/22 15:10 Pulse Ox 98 02/21/22 15:10 O2 Del Method 02/21/22 15:10 O2 Flow Rate 97 02/21/22 12:03 BMI result Body Mass Index 45.5 Appearance: Alert. Oriented X3. No acute distress. Eyes: Pupils equal, round and reactive to light. ENT: Pharynx normal. Neck: Normal inspection. Neck supple. CVS: Normal heart rate and rhythm. Pulses normal. Respiratory: No respiratory distress. Breath sounds normal. Abdomen: Soft and non-tender. Back: ttp along right lower back, R buttock pain, pain with right leg raising Skin: Skin warm and dry. Normal skin color. Normal skin turgor. Extremities: 2+ pitting lower extremity edema. Neuro: Oriented X 3. No motor deficit. No sensory deficit. Course Course Course Narrative: Physician observation started at 415pm Patient placed in physician observation because the patient needed more time for PT/CM to assess for STR. At the time observation was started the patient's vitals were stable, patient is alert and oriented but slightly agitated, Neuro: nonfocal, CV RRR, Lungs clear MDM - Back Pain/Injury MDM Narrative Medical decision making narrative: 86 yo female hx of CHF, HTN, LE edema, hypothyroidism dealing with atraumatic R sided back pain radiating to the right leg - no b/b incontience (wears depends at baseline) no saddle anesthesia at this time will obtain CT scan for compression fracture, she has no CE symptoms, PO pain control, basic labs, DVT study of both legs, once medically cleared at patient and family request will refer for STR. Lab Data Result diagrams: 02/21/22 13:04 02/21/22 15:47 Labs: Lab Results 02/21/22 02/21/22 02/21/22 Range/Units 13:03 13:04 13:11 WBC 11.7 H (4.8-10.8) X10*3/uL RBC 4.48 (4.20-5.50) X10*6/uL Hgb 14.0 (12.0-16.0) g/dl Hct 43.0 (37.0-47.0) % MCV 96.0 (80.0-98.0) fL MCH 31.3 (27.0-33.0) pg MCHC 32.6 (31.0-35.0) g/dl RDW 13.8 (11.0-16.0) % Plt Count 220 (160-400) X10*3/uL MPV 9.3 L (9.4-12.3) fL Immature Gran % (Auto) 0.5 H (0.0-0.4) % Neut % (Auto) 70.6 (45-73) % Lymph % (Auto) 21.2 (20-40) % [place] % (Auto) 6.0 (2-11) % Eos % (Auto) 1.3 (0-4) % Baso % (Auto) 0.4 (0-2) % Lymph # (Auto) 2.5 (1.2-4.9) X10*3/uL [place] # (Auto) 0.7 (0.1-1.2) X10*3/uL Eos # (Auto) 0.2 (0.0-0.4) X10*3/uL Baso # (Auto) 0.1 (0.0-0.2) X10*3/uL Abs Immat Gran (auto) 0.06 H (0.00-0.03) X10*3/uL Absolute Neuts (auto) 8.3 (2.0-8.3) x10*3/uL Absolute Nucleated RBC 0.000 (0.0-0.012) X10*3/uL Nucleated RBC % (auto) 0.0 (0.0-0.2) /100WBC PT 10.7 (9.9-13.0) SEC INR 0.9 (0.9-1.1) Sodium (135-145) mmol/L Potassium (3.3-5.1) mmol/L Chloride (96-108) mmol/L Carbon Dioxide (22-29) mmol/L Anion Gap (12-20) BUN (9-16) mg/dL Creatinine (0.5-1.4) mg/dL Estim Creat Clear Calc Estimated GFR Random Glucose (60-115) mg/dL Calcium (8.4-10.2) mg/dL Magnesium (1.6-2.6) mg/dL Total Bilirubin (0.0-1.0) mg/dL Direct Bilirubin (0.0-0.5) mg/dL AST (5-31) U/L ALT (0-31) U/L Alkaline Phosphatase (39-117) U/L Total Protein (6.5-8.0) g/dL Albumin (3.5-5.0) g/dL Urine Color STRAW Urine Appearance HAZY Urine pH 6.0 (5.0-8.0) Ur Specific [place] <= 1.005 (1.005-1.025) Urine Protein NEG (NEG-TRACE) MG/DL Urine Glucose (UA) NEG (NEG) MG/DL Urine Ketones NEG (NEG) MG/DL Urine Blood 2+ H (NEG) Urine Nitrite NEG (NEG) Ur Leukocyte Esterase 3+ H (NEG) Urine RBC 1-4 (0) /HPF Urine WBC 30-49 H (0-4) /HPF Ur Squamous Epith Cells TRACE /LPF Urine Bacteria TRACE /LPF COVID-19 ([facility]) (Negative) COVID-19 Clin Com 02/21/22 02/21/22 Range/Units 15:47 15:47 WBC (4.8-10.8) X10*3/uL RBC (4.20-5.50) X10*6/uL Hgb (12.0-16.0) g/dl Hct (37.0-47.0) % MCV (80.0-98.0) fL MCH (27.0-33.0) pg MCHC (31.0-35.0) g/dl RDW (11.0-16.0) % Plt Count (160-400) X10*3/uL MPV (9.4-12.3) fL Immature Gran % (Auto) (0.0-0.4) % Neut % (Auto) (45-73) % Lymph % (Auto) (20-40) % [place] % (Auto) (2-11) % Eos % (Auto) (0-4) % Baso % (Auto) (0-2) % Lymph # (Auto) (1.2-4.9) X10*3/uL [place] # (Auto) (0.1-1.2) X10*3/uL Eos # (Auto) (0.0-0.4) X10*3/uL Baso # (Auto) (0.0-0.2) X10*3/uL Abs Immat Gran (auto) (0.00-0.03) X10*3/uL Absolute Neuts (auto) (2.0-8.3) x10*3/uL Absolute Nucleated RBC (0.0-0.012) X10*3/uL Nucleated RBC % (auto) (0.0-0.2) /100WBC PT (9.9-13.0) SEC INR (0.9-1.1) Sodium 141 (135-145) mmol/L Potassium 4.1 (3.3-5.1) mmol/L Chloride 103 (96-108) mmol/L Carbon Dioxide 29 (22-29) mmol/L Anion Gap 13 (12-20) BUN 14 (9-16) mg/dL Creatinine 0.70 (0.5-1.4) mg/dL Estim Creat Clear Calc 65.7 Estimated GFR > 60 Random Glucose 107 (60-115) mg/dL Calcium 9.1 (8.4-10.2) mg/dL Magnesium 2.0 (1.6-2.6) mg/dL Total Bilirubin 0.3 (0.0-1.0) mg/dL Direct Bilirubin < 0.2 (0.0-0.5) mg/dL AST 19 (5-31) U/L ALT 21 (0-31) U/L Alkaline Phosphatase 95 (39-117) U/L Total Protein 7.3 (6.5-8.0) g/dL Albumin 4.0 (3.5-5.0) g/dL Urine Color Urine Appearance Urine pH (5.0-8.0) Ur Specific [place] (1.005-1.025) Urine Protein (NEG-TRACE) MG/DL Urine Glucose (UA) (NEG) MG/DL Urine Ketones (NEG) MG/DL Urine Blood (NEG) Urine Nitrite (NEG) Ur Leukocyte Esterase (NEG) Urine RBC (0) /HPF Urine WBC (0-4) /HPF Ur Squamous Epith Cells /LPF Urine Bacteria /LPF COVID-19 ([facility]) Negative (Negative) COVID-19 Clin Com See Note Discharge Plan Discharge Clinical Impression: Leg edema, Acute UTI Sciatica Qualifiers: Laterality: right Qualified Code(s): M54.31 - Sciatica, right side Patient Disposition: Still a Patient Prescriptions: No Action tramadol 50 mg tablet 50 mg PO BID PRN (Reason: pain) Qty: 10 0RF acetaminophen [Tylenol Arthritis] 650 mg Tablet Extended Release 1,300 mg PO TID calcium carbonate-vitamin D3 [Calcium 500 + D (D3)] 500 mg-3.125 mcg (125 unit) Tablet 1 tab PO DAILY prednisone 10 mg tablet See Taper PO DAILY Taper: Prednisone 40 mg daily for 3 Days and 0 Hour 30 mg daily for 3 Days and 0 Hour 20 mg daily for 3 Days and 0 Hour 10 mg daily for 3 Days and 0 Hour Rx Instructions: 4 tabl x 3days, then 3 tabl x 3days, then 2 tabl x 3days, then 1 tabl x 3days orally daily; gabapentin 600 mg tablet 600 mg PO TID triamcinolone acetonide 0.1 % cream 1 appl topical BID PRN (Reason: Rash) albuterol sulfate [ProAir HFA] 90 mcg/actuation HFA aerosol inhaler 2 puff inhalation Q6H PRN (Reason: Wheezing) ascorbic acid (vitamin C) 500 mg capsule 500 mg PO DAILY multivitamin Tablet 1 tab PO DAILY cholecalciferol (vitamin D3) 25 mcg (1,000 unit) capsule 25 mcg PO DAILY famotidine [Pepcid] 20 mg tablet 20 mg PO DAILY 90 Days Qty: 90 3RF furosemide 40 mg tablet 40 mg PO BID Qty: 180 3RF levothyroxine [Synthroid] 150 mcg tablet 150 mcg PO DAILY 30 Days Qty: 90 3RF losartan [Cozaar] 50 mg tablet 50 mg PO DAILY Qty: 90 3RF potassium chloride 10 mEq capsule, extended release 10 meq PO DAILY Qty: 90 3RF ropinirole 1 mg tablet 1 mg PO DAILY Qty: 90 3RF baclofen 10 mg tablet 10 mg PO BEDTIME Qty: 30 0RF
--- NOTE | 2022-02-21 12:36 | MHC.CM.ED ---
Receive case management consult from Dr Gomez. Patient came to the ER due to RLE pain from sciatica exacerbation. Work up and physical therapy eval are currently pending. Met with patient and daughter, Yoli, in regards to discharge planning. Patient lives with her son, Osvaldo, her [id number] and granddaughter. Patient is supposed to use a walker for mobility. However, due to the house being crowded patient is only able to use a cane in the home for mobility. PCP verified. Copy of HCP obtained from Yoli. Patient has not received any Covid vaccines. [facility] is patient's first choice if rehab is needed. Patient and Yoli are aware rehab placement might be difficult due to patient not being vaccinated. Referral broadcasted to all 3 acute rehabs and to all alf facilities within 20 miles of patient's home. Continue to monitor for d/c needs.
[2022-02-21] MEDS: oxyCODONE HCl Immed Release 5 MG TABLET PO ×2 (12:39→20:24)
[2022-02-21] MEDS: Ondansetron ODT 4 MG TAB.RAPDIS TRANSLINGU (12:39)
[2022-02-21 13:08] LABS: MANUAL DIFF FLAG NO
[2022-02-21 13:09] LABS: Basophils Absolute Auto 0.1 X10*3/uL (0.0-0.2); Basophils Percent Auto 0.4 % (0-2); Eosinophils Absolute Auto 0.2 X10*3/uL (0.0-0.4); Eosinophils Percent Auto 1.3 % (0-4); Imm Gran Abs Auto 0.06 X10*3/uL (0.00-0.03); Imm Gran Pct Auto 0.5 % (0.0-0.4); Lymphocytes Absolute Auto 2.5 X10*3/uL (1.2-4.9); Lymphocytes Percent Auto 21.2 % (20-40); Mean Corpuscular HGB Conc 32.6 g/dl (31.0-35.0); Mean Corpuscular Hemoglobin 31.3 pg (27.0-33.0); Mean Platelet Volume 9.3 fL (9.4-12.3); Monocytes Absolute Auto 0.7 X10*3/uL (0.1-1.2); Neutrophils Absolute Auto 8.3 x10*3/uL (2.0-8.3); Neutrophils Percent Auto 70.6 % (45-73); Platelet Count 220 X10*3/uL (160-400); Red Blood Count 4.48 X10*6/uL (4.20-5.50); Red Cell Distribution Width 13.8 % (11.0-16.0); White Blood Count 11.7 X10*3/uL (4.8-10.8)
[2022-02-21 13:14] LABS: INTERNATIONAL NORM RATIO 0.9 (0.9-1.1); Prothrombin Time 10.7 SEC (9.9-13.0)
[2022-02-21 13:20] LABS: Appearance Urine HAZY; Color Urine STRAW; Glucose Urine UA NEG (NEG); Leukocyte Esterase Urine 3+ (NEG); Nitrite Urine NEG (NEG); Specific Gravity - Urine <= 1.005 (1.005-1.025); UACC Culture Trigger YES; Urine Blood 2+ (NEG); Urine Ketones NEG (NEG); Urine Protein NEG (NEG-TRACE)
[2022-02-21 13:29] LABS: Bacteria Urine TRACE /LPF; Squamous Epithelial Cell Urine TRACE /LPF; WBC Urine 30-49 /HPF (0-4)
[2022-02-21 14:24] VITALS: BP 173/74; PULSE 87; RESP 18
--- NOTE | 2022-02-21 14:31 | PHA.MEDREC ---
Pharmacy Consult ? Medication Reconciliation Pharmacy has completed the medication reconciliation. Patient had list of medications. Patient was prescribed prednisone taper and baclofen today, therefore has not started the medication yet. Lizzette Lui, PharmD
[2022-02-21 15:10] VITALS: BP 145/73; PULSE 80; RESP 16; TEMP 36.6; O2SAT 98
[2022-02-21] MEDS: diazePAM 2 MG TABLET PO (15:38)
[2022-02-21 16:09] LABS: Alanine Aminotransferase 21 U/L (0-31); Alkaline Phosphatase 95 U/L (39-117); Anion Gap 13 (12-20); Aspartate Amino Transferase 19 U/L (5-31); Bilirubin Direct < 0.2 mg/dL (0.0-0.5); Bilirubin Total 0.3 mg/dL (0.0-1.0); Blood Urea Nitrogen 14 mg/dL (9-16); COVID-19 Test Negative (Negative); Calcium 9.1 mg/dL (8.4-10.2); Carbon Dioxide 29 mmol/L (22-29); Chloride 103 mmol/L (96-108); Creatinine Clr Calc Pharmacy 65.7; Estimated Glomerular Filt Rate > 60; Glucose Random 107 mg/dL (60-115); Potassium 4.1 mmol/L (3.3-5.1); Sodium 141 mmol/L (135-145); Total Protein 7.3 g/dL (6.5-8.0)
[2022-02-21 16:15] LABS: B Type Natriuretic Peptide 106 pg/mL (<100)
--- NOTE | 2022-02-21 17:25 | MHC.CM.ED ---
Received T/C from [facility]. Bed offer made. MD at facility reviewed record and felt pt was a good candidate for their facility. Do not need PT evaluation. Requesting Covid screen. Negative. Will upload. Will book transport. Willing to accept patient at any time. Vania TERRAZAS and Dulce SESAY aware. CM to follow for d/c needs.
--- NOTE | 2022-02-21 17:53 | MHC.CM.ED ---
CM uploaded negative covid in [facility]. Spoke with Katina at [facility]. BLS booked for 7 pm with ETA of 7-7:30. RN Vania and patient aware. CM to follow for d/c needs.
--- NOTE | 2022-02-21 19:24 | PC.NURSE ---
pt assisted to bedside commode, all safety measures maintained.
== END 2022-02-21 20:59 ==
PROVIDERS: Emergency Provider Emergency Medicine; PCP Internal Medicine
DX: M54.41 Lumbago with sciatica, right side (principal); N39.0 Urinary tract infection, site not specified; R60.0 Localized edema; R06.02 Shortness of breath; Z20.822 Contact with and (suspected) exposure to COVID-19; Z79.899 Other long term (current) drug therapy; Z87.891 Personal history of nicotine dependence
CPT/HCPCS: 36415; 74176; 80048; 80076; 81001; 83735; 83880; 85025; 85610; 87086; 87088; 87186; 87635; 93970; 99284

== ENCOUNTER 2022-03-14 10:36 | Outpatient (REF) | payer MEDICARE, OTHER, SELFPAY ==
[2022-03-14 13:52] LABS: MANUAL DIFF FLAG NO
[2022-03-14 13:59] LABS: Basophils Percent Auto 0.2 % (0-2); Eosinophils Absolute Auto 0.3 X10*3/uL (0.0-0.4); Hematocrit 40.4 % (37.0-47.0); Imm Gran Abs Auto 0.03 X10*3/uL (0.00-0.03); Imm Gran Pct Auto 0.3 % (0.0-0.4); Lymphocytes Absolute Auto 2.6 X10*3/uL (1.2-4.9); Lymphocytes Percent Auto 27.7 % (20-40); Mean Corpuscular HGB Conc 32.2 g/dl (31.0-35.0); Mean Corpuscular Hemoglobin 30.7 pg (27.0-33.0); Mean Corpuscular Volume 95.5 fL (80.0-98.0); Monocytes Absolute Auto 0.6 X10*3/uL (0.1-1.2); Monocytes Percent Auto 6.5 % (2-11); Neutrophils Absolute Auto 5.7 x10*3/uL (2.0-8.3); Neutrophils Percent Auto 62.3 % (45-73); Platelet Count 213 X10*3/uL (160-400); Red Blood Count 4.23 X10*6/uL (4.20-5.50); Red Cell Distribution Width 13.9 % (11.0-16.0); White Blood Count 9.2 X10*3/uL (4.8-10.8)
[2022-03-14 14:12] LABS: Alanine Aminotransferase 18 U/L (0-31); Albumin Level 3.9 g/dL (3.5-5.0); Alkaline Phosphatase 93 U/L (39-117); Anion Gap 13 (12-20); Aspartate Amino Transferase 17 U/L (5-31); Bilirubin Total 0.4 mg/dL (0.0-1.0); Blood Urea Nitrogen 27 mg/dL (9-16); Calcium 9.1 mg/dL (8.4-10.2); Carbon Dioxide 29 mmol/L (22-29); Chloride 101 mmol/L (96-108); Estimated Glomerular Filt Rate > 60; Glucose Random 101 mg/dL (60-115); Potassium 4.2 mmol/L (3.3-5.1); Sodium 139 mmol/L (135-145)
== END 2022-03-14 10:37 | disposition home or self-care (01) ==
LOC: HO.HMGCLDS 10:36
PROVIDERS: PCP Internal Medicine; Visit Provider Internal Medicine
DX: I10 Essential (primary) hypertension (principal); G62.9 Polyneuropathy, unspecified
CPT/HCPCS: 36415; 80053; 85025